=== PATIENT | female | born 1990 | race Caucasian/White ===

== ENCOUNTER 2023-01-01 08:19 | Emergency (ER) | payer BC, SELFPAY ==
[2023-01-01 08:26] VITALS: BP 123/82; PULSE 102; RESP 16; TEMP 36.5; O2SAT 100
--- NOTE | 2023-01-01 08:35 | ED.URI ---
HPI - URI/Sore Throat General Chief Complaint: Upper Respiratory Infection Stated Complaint: FEVER/COUGH/DRAINAGE Time Seen by Provider: 01/01/23 08:35 Source: patient, RN notes reviewed and old records reviewed Mode of arrival: ambulatory Limitations: no limitations History of Present Illness HPI Narrative: 32 year old female presents to [facility] care with complaints of cough and sinus congestion and right ear pressure for the past 3 days. Patient reports a little over week ago she had sinus congestion with drainage, fevers and body aches thought she had the flu,did get better until 3 days ago when present symptoms started. Patient reports that congestion is greenish in color and her cough is worse at night, denies any shortness of breath. Patient has been taking daily Zyrtec and taking Robitussin without improvement, no present fevers. MD elicited complaint: cough, rhinorrhea, nasal congestion, sinus pain and other (right ear pressure) Onset (ago): day(s) (3 days present symptoms, was also ill a little over week ago) Description of mucous: green Able to tolerate fluids by mouth: Yes Associated symptoms: rhinorrhea, nasal congestion, cough and ear pain Treatments prior to arrival: other (Zyrtec, Robitussin) Related Data Home Medications Medication Instructions Recorded Confirmed cetirizine 10 mg tablet (Zyrtec) 10 mg PO DAILY 01/01/23 01/01/23 escitalopram oxalate 10 mg tablet 10 mg PO DAILY 01/01/23 01/01/23 Allergies Allergy/AdvReac Type Severity Reaction Status Date / Time No Known Allergies Allergy Verified 01/01/23 08:37 Review of Systems Review of Systems: CONSTITUTIONAL: Denies malaise, chills, sweats, or fever for the past 3 days, did have fever a little over 1 week ago EYES: Denies visual changes, redness, or discharge. ENT: Reports rhinorrhea, congestion, sinus pain,right otalgia no sore throat. CARDIOVASCULAR: Denies chest pain, palpitations, or edema. RESPIRATORY: Reports cough.? Denies dyspnea. GASTROINTESTINAL: Denies abdominal pain, nausea, vomiting, diarrhea SKIN: Denies rash or itching. MUSCULOSKELETAL: Denies present myalgia. NEUROLOGIC: Denies headache. All systems reviewed & are unremarkable except as noted in HPI and below PMFSH Past Medical History Medical History (Updated 01/01/23 @ 09:03 by Gisela Echavarria NP) Anxiety Surgical History Surgical History (Updated 01/01/23 @ 09:03 by Gisela Echavarria NP) History of tonsillectomy Social History Social History (Updated 01/01/23 @ 09:04 by Gisela Echavarria NP) Smoking status: Never smoker Alcohol intake: current Alcohol use details: social Substance use type: does not use Living arrangements: with family Gender identity (if verbalized by the patient): Female Comments At time of signature, agree with nursing past medical, surgical, social and family history. There is no relevant family history pertinent to the presenting complaint Exam Narrative: GENERAL: Well-appearing, well-nourished, and in no acute distress. HEAD: Normocephalic EYES: PERRLA, conjunctivae clear ENT: Nares clear, turbinates edematous and erythematous, clear to light yellow sinus discharge. Mucous membranes moist. TM pearly arnett with dull light reflex bilaterally; no tragal tenderness. Oropharynx erythematous without lesions. Tonsils not present and throat and without exudate, no drooling, no hoarseness, no trismus, uvula midline. NECK: Supple. No lymphadenopathy CHEST: Clear to auscultation, breath sounds equal. No wheezing, rhonchi, rales, or stridor. No respiratory distress, speaks in full sentences.harsh cough noted productive greenish mucous.Sao2 100% on room air. HEART: Regular rate and rhythm. No murmur heard. SKIN: Warm, dry, no rash. NEURO: Alert and oriented x3. PSYCH: Normal mood and affect Course Course Emergency Course: Patient is aware of diagnosis, understands and agrees to treatment plan.
[2023-01-01 08:37] VITALS: BP 123/82; PULSE 102; RESP 16; TEMP 36.5; O2SAT 100
== END 2023-01-01 08:50 | disposition home or self-care (01) ==
PROVIDERS: Emergency Provider Registered Nurse; PCP Internal Medicine
DX: J01.40 Acute pansinusitis, unspecified (principal); F41.9 Anxiety disorder, unspecified
CPT/HCPCS: 99213; G0463

== ENCOUNTER 2023-07-16 08:12 | Emergency (ER) | payer OTHER, SELFPAY ==
[2023-07-16 08:25] VITALS: BP 110/82; PULSE 100; RESP 16; TEMP 36.9; O2SAT 97
--- NOTE | 2023-07-16 08:34 | ED.URI ---
HPI - URI/Sore Throat General Chief Complaint: Upper Respiratory Infection Stated Complaint: Sore Throat, Bodyache, Drainage Source: patient and RN notes reviewed Mode of arrival: ambulatory Limitations: no limitations History of Present Illness HPI Narrative: 32-year-old female presented for complaint of sinus congestion, sore throat, and cough for over 1 week. She endorses a cough is worse at night with occasional wheezing or rattling. She denies shortness of breath, nausea, vomiting, diarrhea, fevers or chills. She is taking DayQuil and NyQuil. MD elicited complaint: cough Related Data Home Medications Medication Instructions Recorded Confirmed cetirizine 10 mg tablet (Zyrtec) 10 mg PO DAILY 01/01/23 07/16/23 escitalopram oxalate 10 mg tablet 10 mg PO DAILY 01/01/23 07/16/23 Allergies Allergy/AdvReac Type Severity Reaction Status Date / Time sulfamethoxazole Allergy Swelling Verified 07/16/23 08:22 [From Bactrim] of Lip/Tongue/Throat trimethoprim [From Bactrim] Allergy Swelling Verified 07/16/23 08:22 of Lip/Tongue/Throat Review of Systems Review of Systems: CONSTITUTIONAL: Denies malaise, chills, sweats, fever EYES: Denies visual changes, redness, or discharge ENT: Reports rhinorrhea, congestion, sore throat denies otalgia CARDIOVASCULAR: Denies chest pain, palpitations, edema RESPIRATORY: Reports cough, post nasal drainage. Denies dyspnea GASTROINTESTINAL: Denies abdominal pain, nausea, vomiting, diarrhea SKIN: Denies rash or itching MUSCULOSKELETAL: Denies myalgia NEUROLOGIC: Denies headache PMFSH Past Medical History Medical History Anxiety Surgical History Surgical History History of tonsillectomy Social History Social History Smoking status: Never smoker Alcohol intake: current Alcohol use details: social Substance use type: does not use Living arrangements: with family Gender identity (if verbalized by the patient): Female Exam Narrative: GENERAL: well-appearing, nontoxic no acute distress. HEAD: Normocephalic EYES: conjunctivae clear ENT: Mucous membranes moist. TM pearly arnett with dull light reflex bilaterally; no tragal tenderness. Oropharynx not erythematous without lesions or exudate, no drooling, no hoarseness, no trismus, uvula midline. No tripod positioning, muffled voice, soft palate or pharyngeal wall bulging NECK: Supple. No lymphadenopathy CHEST: Faint exp wheeze to left base, otherwise clear to auscultation, breath sounds equal. No respiratory distress, speaks in full sentences. HEART: Regular rate and rhythm. No murmur heard. SKIN: Warm, dry, no rash. NEURO: Alert and oriented x3. PSYCH: Normal mood and affect Course Course Emergency Course: Patient is aware of diagnosis, understands and agrees to treatment plan. Anticipatory guidance given. Patient agrees to follow-up as directed and is aware of reasons to seek care at the emergency department. Portions of this record may have been created with voice recognition software Level of Care: Express Care Visit Vital Signs Vital signs: Vital Signs Temperature 98.4 F 07/16/23 08:25 Pulse Rate 100 07/16/23 08:25 Respiratory Rate 16 07/16/23 08:25 Blood Pressure 110/82 07/16/23 08:25 Pulse Oximetry 97 07/16/23 08:25 Temperature 98.4 F 07/16/23 08:25 Pulse Rate 100 07/16/23 08:25 Respiratory Rate 16 07/16/23 08:25 Blood Pressure 110/82 07/16/23 08:25 Pulse Oximetry 97 07/16/23 08:25 reviewed MDM - URI/Sore Throat MDM Narrative Medical decision making narrative: Need to strep result reviewed with patient. Discussed physical exam findings. Advised supportive measures and signs/symptoms to go to the ER. Pt is appropriate for outpt treatment and f/u. Differential Diagnos
== END 2023-07-16 08:51 | disposition home or self-care (01) ==
PROVIDERS: Emergency Provider Nurse Practitioner Family; PCP Internal Medicine
DX: J06.9 Acute upper respiratory infection, unspecified (principal)
CPT/HCPCS: 87081; 87880; 99213; G0463